=== PATIENT | male | born 1990 | race Hispanic/Latino ===

== ENCOUNTER 2017-08-11 01:36 | Day surgery (SDC) | payer SELFPAY ==
[2017-08-11 01:59] LABS: BASOPHIL (%) 0.4 % (0-1); EOSINOPHIL (%) 1.2 % (0-5); EOSINOPHIL COUNT 0.1 K/uL (0-0.3); HEMATOCRIT 41.9 % (38.0-50.0); HEMOGLOBIN 12.8 G/DL (12.5-16.6); IMMATURE GRANULOCYTE (%) 4.4 % (0.0-0.7); LYMPHOCYTE (%) 49.1 % (15-42); MCH 30.8 PG (29.0-34.0); MCHC 30.5 G/DL (30.0-36.0); MCV 100.7 FL (86-99); MONOCYTE (%) 7.5 % (3-12); MONOCYTE COUNT 0.6 K/uL (0-0.8); NEUTROPHIL (%) 37.4 % (45-76); NEUTROPHIL COUNT 3.1 K/uL (1.8-6.4); NRBC (%) 0.2 /100 WBC (0-0); PLATELET COUNT 63 K/uL (156-360); RBC DIS.WIDTH-CV 13.6 % (11.8-14.6); RBC DIS.WIDTH-SD 50.6 % (39-53); RED BLOOD COUNT 4.16 M/uL (4.00-5.50); WHITE BLOOD COUNT 8.2 K/uL (4.1-10.2)
[2017-08-11 02:12] LABS: AMYLASE 63 IU/L (1-118); CHLORIDE 109 mEq/L (99-109); POTASSIUM 5.2 mEq/L (3.7-5.4); SODIUM 143 mEq/L (136-147)
[2017-08-11 02:14] LABS: GLUCOSE 310 mg/dL (70-99)
[2017-08-11 02:17] LABS: SERUM ETHYL ALCOHOL 114 mg/dL
[2017-08-11 02:18] LABS: CREATININE 1.1 mg/dL (0.6-1.3); GFR ESTIMATE (CALCULATED) > 59 mL/min/ (58.99-99999)
[2017-08-11 02:19] LABS: UREA NITROGEN (BUN) 15 mg/dL (9-23)
[2017-08-11 02:21] LABS: LIPASE 58 U/L (1.0-51.0)
== END 2017-08-11 03:09 ==
LOC: TRA 01:36 → SDC 02:18
PROVIDERS: Emergency Medicine
DX: S25.311A Minor laceration of right innominate or subclavian vein, initial encounter (principal); S36.532A Laceration of descending [left] colon, initial encounter; S36.439A Laceration of unspecified part of small intestine, initial encounter; S21.312A Laceration without foreign body of left front wall of thorax with penetration into thoracic cavity, initial encounter; S31.613A Laceration without foreign body of abdominal wall, right lower quadrant with penetration into peritoneal cavity, initial encounter; S31.614A Laceration without foreign body of abdominal wall, left lower quadrant with penetration into peritoneal cavity, initial encounter; S01.81XA Laceration without foreign body of other part of head, initial encounter; T79.4XXA Traumatic shock, initial encounter; I97.711 Intraoperative cardiac arrest during other surgery; X99.9XXA Assault by unspecified sharp object, initial encounter; Y93.9 Activity, unspecified; Y92.480 Sidewalk as the place of occurrence of the external cause; Y99.9 Unspecified external cause status
CPT/HCPCS: 31500; 70450; 70491; 71045; 71260; 74018; 74177; 80048; 81003; 82150; 83690; 85025; 86850; 86900; 86901; 86920; 94002; 94799; 99281; 99285; C1894; G0480; J0330; P9016; P9017; P9040